=== PATIENT | female | born 1975 | race Caucasian/White ===

== ENCOUNTER 2016-12-07 10:55 | Emergency (ER) | payer OTHER ==
[2016-12-07 11:01] VITALS: BP 94/72; BMI 25.7
--- NOTE | 2016-12-07 11:51 | DR.GENAD ---
HPI - PCP Primary Care Physician: Adrian - HPI Comment HPI Comment: FELL OFF THE STEP WEDNESDAY AND INJURED LOWER BACK. PAIN SINCE THAT RADIATES TO LEFT HIP. NO LOC. HAVE INJURED BACK PREVIOUSLY. - Complaint/Symptoms Chief Complaint Doctors Comments: FELL, LOW BACK PAIN. Chief Complaint:: pt states she fell out the door steps on wednesday and has been having lower back pain since then that radiates to her right leg. Self Treatment fo Chief Complaint: Ibuprofen - Nurses notes reviewed Nurses Notes Review: Yes - Source History Provided: Patient - Mode of Arrival Mode of Arrival: Ambulatory - Timing Onset of Chief Complaint: 12/04/16 Came on: Suddenly - Duration Duration: Constant Duration: Days - Severity Severity: Moderate PMH - PMH Past Medical History: Yes Past Medical History Comment: Scoliosis Past Surgical History: Yes Surgical History: - Family History History of Family Medical Conditions: Yes Family Medical History: Diabetes Mellitus, Cancer, Hypertension - Social History Does patient currently use any type of tobacco product: Yes Have you used tobacco products in the last 12 months: Yes Type of Tobacco Use: Cigarettes Does any household member use tobacco: No Alcohol Use: None Do you use any recreational Drugs:: No Lives With: Alone Lives Where: Home - infectious screening In the last 2 months have you had wt loss of >10#?: NO Have you had fever, night sweats or hemotysis?: No Have you traveled outside the country in the last 6 months?: No Isolation: Standard ROS - Review of Systems Constitutional: No Symptoms Reported Eyes: No Symptoms Reported ENTM: No Symptoms Reported Respiratoy: No Symptoms Reported Cardiovascular: No Symptoms Reported Gastrointestinal/Abdominal: No Symptoms Reported Genitourinary: No Symptoms Reported Neurological: No Symptoms Reported Musculoskeletal: Back Pain (LOWER BACK PAIN) Integumentary: No Symptoms Reported Hematologic/Lymphatic: No Symptoms Reported Endocrine: No Symptoms Reported All Other Systems: Reviewed and Negative PE - Vital Signs Vitals: Temperature 98 F Pulse Rate 85 Respiratory Rate 18 Blood Pressure 94/72 O2 Sat by Pulse Oximetry 98 - General Limitations: No Limitations General Appearance: Alert - Head Head Exam: Normal Inspection - Eyes Eye exam: Normal Appearance - ENT ENT Exam: Normal External Ear Exam Nose Exam: Normal Nose Exam Mouth Exam: Normal Inspection Throat Exam: Normal Inspection - Neck Neck Exam: Trachea Midline - Chest Chest Inspection: Symmetric Chest Wall Rise - Respiratory Respiratory Exam: Normal Lung Sounds Bilat Respiratory Exam: Bilateral Clear to Auscultation - Cardiovascular Cardiovascular Exam: Regular Rate, Normal Rhythm, Normal Heart Sounds - Abdominal Exam Abdominal Exam: Normal Bowel Sounds, Soft. negative: Tenderness - Extremities Extremities Exam: Normal Inspection - Back Back Exam: Paraspinal Tenderness, Vertebral Tenderness (LOWER BACK) - Neurologic Neurological Exam: Alert, Oriented X3 - Psychiatric Psychiatric Exam: Normal Affect, Normal Mood - Skin Skin Exam: Normal Color MDM - Additional Information Additional Information Obtained From: Family - Differential Diagnosis Differential Diagnosis: LOWER BACK SRTRAIN, SPRAIN FRACTURE, CONTUSION. Course - Treatment Treatment: SEE ORDERS. - Education/Counseling Education/Counseling: Patient, Education Educated On: Treatment, Diagnosis, Needs for Follow Up ROR - XRAY XRAY Interpreted by: Radiologist XRAY Findings: REPORT DISCUSS WITH PATIENT. - Diagnosis Discharge Problem: Lumbosacral strain Qualifiers: Encounter type: initial encounter Qualified Code(s): S39.012A - Strain of muscle, fascia and tendon of lower back, initial encounter - Discharge Plan Disposition: HOME, SELF-CARE Condition: Stable Prescriptions: Cyclobenzaprine HCl [FLEXERIL 10 MG *] 10 mg PO TID PRN #20 tab PRN Reason: Ibuprofen [MOTRIN TAB 600 MG *] 600 mg PO TID PRN #20 tab PRN Reason: Pain/Inflammation Tramadol HCl 50 mg PO Q8H PRN #15 tab PRN Reason: Pain - Follow ups/Referrals Follow ups/Referrals: NFD,None [Primary Care Provider] - 3 days - Instructions Instructions: Lumbosacral Strain Additional Instructions: RETURN TO ED IF WORSE.
[2016-12-07] MEDS ORDERED: NORFLEX INJ IM ONE (13:29)
[2016-12-07] MEDS ORDERED: TORADOL 60 MG VIAL IM ONE (13:29)
[2016-12-07] MEDS ORDERED: TORADOL 60 MG VIAL ONE (14:00)
[2016-12-07] MEDS ORDERED: NORFLEX INJ ONE (14:01)
--- NOTE | 2016-12-07 15:25 | RAD ---
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 The alignment is normal . The vertebral bodies are of average height. No compression fractures are identified. Degenerative disc disease is present at L2-3 L5-S1. The pedicles are intact. The SI joints are poorly demonstrate d due to suboptimal positioning. No spondylolysis or spondylolisthesis is identified. 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 Suboptimal evaluation of the sacroiliac joints due to suboptimal positioning of the patient. Reported By:
== END 2016-12-07 15:19 | disposition home or self-care (01) ==
LOC: ER 10:55
DX: S39.012A Strain of muscle, fascia and tendon of lower back, initial encounter (principal); W10.9XXA Fall (on) (from) unspecified stairs and steps, initial encounter; Y92.9 Unspecified place or not applicable
CPT/HCPCS: 72110; 96372; 99282; 99283; J1885; J2360

== ENCOUNTER 2017-08-27 13:48 | Emergency (ER) | payer SELFPAY ==
[2017-08-27 13:52] VITALS: BP 105/66; BMI 23.6
--- NOTE | 2017-08-27 15:03 | DR.GENAD ---
HPI - PCP Primary Care Physician: ULISSES - HPI Comment HPI Comment: PATIENT SAID SHE IS GETTING WORSE. SHE WEAK AND TIRED EASILY. - Complaint/Symptoms Chief Complaint Doctors Comments: SICK TIMES 2 MONTHS WITH PERSISTENT COUGHING. MEDS TAKING SO FAR NOT HELPING. TOOK MED FROM [facility]. HAVING GENERALIZE BODY ACHES ALSO. Chief Complaint:: PATIENT STATED THAT SHE HAS BEEN COUGHING AND FEVER BODY ACHES FOR THE LAST 2 MONTHS. - Nurses notes reviewed Nurses Notes Review: Yes - Source History Provided: Patient - Mode of Arrival Mode of Arrival: Ambulatory - Timing Onset of Chief Complaint: 06/28/17 Came on: Gradually - Duration Duration: Constant Duration: Weeks - Severity Severity: Moderate PMH - PMH Past Medical History: No Past Surgical History: Yes Surgical History: - Family History History of Family Medical Conditions: Yes Family Medical History: Diabetes Mellitus, Cancer, Hypertension - Social History Does patient currently use any type of tobacco product: Yes Have you used tobacco products in the last 12 months: Yes Type of Tobacco Use: Cigarettes Does any household member use tobacco: No Alcohol Use: None Do you use any recreational Drugs:: No Lives With: Family Lives Where: Home - infectious screening In the last 2 months have you had wt loss of >10#?: NO Have you had fever, night sweats or hemotysis?: No Have you traveled outside the country in the last 6 months?: No Isolation: Standard ROS - Review of Systems Constitutional: Weakness, Fatigue. negative: Chills, Fever Eyes: negative: Eye Pain, Discharge ENTM: Nose Congestion. negative: Ear Pain, Nose Discharge, Throat Pain Respiratoy: Non-Productive Cough. negative: Short of Breath, Wheezing, Hemoptysis Cardiovascular: Chest Pain (CHEST WALL PAIN.) Gastrointestinal/Abdominal: No Symptoms Reported Genitourinary: No Symptoms Reported Neurological: No Symptoms Reported Musculoskeletal: Muscle Pain Integumentary: No Symptoms Reported Hematologic/Lymphatic: No Symptoms Reported Endocrine: No Symptoms Reported All Other Systems: Reviewed and Negative PE - Vital Signs Vitals: Temperature 97.6 F Pulse Rate 81 Respiratory Rate 20 Blood Pressure 105/66 O2 Sat by Pulse Oximetry 100 - General Limitations: No Limitations General Appearance: Alert - Head Head Exam: Normal Inspection - Eyes Eye exam: Normal Appearance - ENT ENT Exam: Normal External Ear Exam External Ear Exam: Normal External Inspection TM/Canal Exam: Bilateral Normal Nose Exam: Normal Nose Exam Mouth Exam: Normal Inspection Throat Exam: Normal Inspection - Neck Neck Exam: Trachea Midline - Chest Chest Inspection: Symmetric Chest Wall Rise - Respiratory Respiratory Exam: Normal Lung Sounds Bilat Respiratory Exam: Bilateral Rhonchi, Lower Rhonchi - Cardiovascular Cardiovascular Exam: Regular Rate, Normal Rhythm, Normal Heart Sounds - Abdominal Exam Abdominal Exam: Normal Bowel Sounds, Soft. negative: Tenderness - Extremities Extremities Exam: Normal Inspection - Back Back Exam: Normal Inspection - Neurologic Neurological Exam: Alert, Oriented X3 - Psychiatric Psychiatric Exam: Normal Affect, Normal Mood - Skin Skin Exam: Normal Color MDM - Differential Diagnosis Differential Diagnosis: PNEUMONIA, BRONCHITIS, UTI, Course - Treatment Treatment: SEE ORDERS. - Education/Counseling Education/Counseling: Patient, Education Educated On: Diagnosis, Needs for Follow Up ROR - Labs Reviewed Laboratory Results Reviewed?: Yes Result Diagrams: 08/27/17 15:21 08/27/17 15:21 Laboratory: WBC 8.2 X10^3/uL (3.6-10.0) 08/27/17 15:21 RBC 4.41 X10^6/uL (3.5-5.4) 08/27/17 15:21 Hgb 14.3 g/dL (12.0-16.0) 08/27/17 15:21 Hct 40.7 % (36.0-47.0) 08/27/17 15:21 MCV 92.4 fL (80.0-100.0) 08/27/17 15:21 MCH 32.4 pg (27.0-34.0) 08/27/17 15:21 MCHC 35.1 g/dL (33.0-35.0) H 08/27/17 15:21 RDW 12.8 % (11.6-16.5) 08/27/17 15:21 Plt Count 224 X10^3/uL (150.0-450.0) 08/27/17 15:21 MPV 8.3 fL (7.4-11.0) 08/27/17 15:21 Neut % 52.2 % (42.0-75.0) 08/27/17 15:21 Lymph % 36.1 % (21.0-51.0) 08/27/17 15:21 [place] % 9.2 % (0.0-13.0) 08/27/17 15:21 Eos % 2.1 % (0.9-2.9) 08/27/17 15:21 Baso % 0.4 % (0.2-1.0) 08/27/17 15:21 Neut # 4.3 x10^3/uL (2.2-4.8) 08/27/17 15:21 Lymph # 2.9 X10^3/uL (1.3-2.9) 08/27/17 15:21 [place] # 0.7 x10^3/uL (0.3-0.8) 08/27/17 15:21 Eos # 0.2 x10^3/uL (0.0-0.2) 08/27/17 15:21 Baso # 0.0 X10^3/uL (0.0-0.1) 08/27/17 15:21 Absolute Nucleated RBC 0.1 /100WBC 08/27/17 15:21 D-Dimer 149 ng/mL (0-400) 08/27/17 15:21 Sodium 142 mmol/L (136-145) 08/27/17 15:21 Corrected Sodium TNP 08/27/17 15:21 Potassium 3.8 mmol/L (3.5-5.1) 08/27/17 15:21 Chloride 106 mmol/L (98-107) 08/27/17 15:21 Carbon Dioxide 30.2 mmol/L (21-32) 08/27/17 15:21 BUN 9 mg/dL (7-18) 08/27/17 15:21 Creatinine 0.73 mg/dL (0.55-1.02) 08/27/17 15:21 Est GFR (MDRD) Af Amer > 60 (>60) 08/27/17 15:21 Est GFR (MDRD) Non-Af > 60 (>60) 08/27/17 15:21 Glucose 83 mg/dL (65-99) 08/27/17 15:21 Calcium 8.8 mg/dL (8.5-10.1) 08/27/17 15:21 Corrected Calcium TNP 08/27/17 15:21 Total Bilirubin 0.20 mg/dL (0.2-1.0) 08/27/17 15:21 AST 15 Units/L (15-37) 08/27/17 15:21 ALT 17 Units/L (12-78) 08/27/17 15:21 Alkaline Phosphatase 96 Units/L (46-116) 08/27/17 15:21 Total Protein 7.1 g/dL (6.4-8.2) 08/27/17 15:21 Albumin 3.7 g/dL (3.4-5.0) 08/27/17 15:21 Globulin 3.4 g/dL (2.5-4.5) 08/27/17 15:21 Albumin/Globulin Ratio 1.1 Ratio (1.1-2.1) 08/27/17 15:21 Specimen Type Clean catch urine 08/27/17 15:17 Urine Color Yellow (YELLOW) 08/27/17 15:17 Urine Appearance Cloudy (CLEAR) 08/27/17 15:17 Urine pH 7.0 (5.0 - 8.0) 08/27/17 15:17 Ur Specific [place] 1.015 (1.000-1.030) 08/27/17 15:17 Urine Protein 1+ (NEGATIVE) 08/27/17 15:17 Urine Glucose (UA) Negative (NEGATIVE) 08/27/17 15:17 Urine Ketones 1+ (NEGATIVE) 08/27/17 15:17 Urine Occult Blood 1+ (NEGATIVE) 08/27/17 15:17 Urine Nitrite Positive (NEGATIVE) 08/27/17 15:17 Urine Bilirubin Negative (NEGATIVE) 08/27/17 15:17 Urine Urobilinogen 2+ (NORMAL) 08/27/17 15:17 Ur Leukocyte Esterase 3+ (NEGATIVE) 08/27/17 15:17 Urine RBC 02 - 05 /HPF (NEGATIVE) 08/27/17 15:17 Urine WBC Tntc with clumps /HPF (NEGATIVE) 08/27/17 15:17 Ur Squamous Epith Cells Many /HPF (NEGATIVE) 08/27/17 15:17 Ur Renal Epithelial Cell Few /HPF (NEGATIVE) 08/27/17 15:17 Amorphous Sediment 2+ /HPF (NEGATIVE) 08/27/17 15:17 Urine Bacteria 3+ /HPF (NEGATIVE) 08/27/17 15:17 Hyaline Casts Rare /LPF (NEGATIVE) 08/27/17 15:17 Ur Culture Indicated? Yes/culture set up 08/27/17 15:17 - XRAY XRAY Interpreted by: Radiologist XRAY Findings: REPORT DISCUSS WITH PATIENT. - Diagnosis Discharge Problem: Bronchitis Chest pain Qualifiers: Chest pain type: intercostal pain Qualified Code(s): R07.82 - Intercostal pain UTI (urinary tract infection) Qualifiers: Urinary tract infection type: site unspecified Hematuria presence: without hematuria Qualified Code(s): N39.0 - Urinary tract infection, site not specified - Discharge Plan Disposition: HOME, SELF-CARE Condition: Stable Prescriptions: Benzonatate [TESSALON PERLES *] 200 mg PO TID PRN #30 cap PRN Reason: Cough Ciprofloxacin HCl [CIPRO 500 MG TAB *] 500 mg PO Q12H #20 tab Ibuprofen [MOTRIN TAB 600 MG *] 600 mg PO TID PRN #30 tab PRN Reason: Pain/Inflammation - Follow ups/Referrals Follow ups/Referrals: NFD,None [Primary Care Provider] - 3 days - Instructions Instructions: Cough, Adult, [id number], Urinary Tract Infection, Adult, Easy- to-Read, Acute Bronchitis, [id number] Additional Instructions: RETURN TO ED IF WORSE.
--- NOTE | 2017-08-27 15:26 | RAD ---
HISTORY: 41-year-old female with cough and flu-like symptoms. Study: Frontal view of the chest. Comparison: Chest radiographs 08/29/2012 Findings: The trachea is midline. The cardiac silhouette is unremarkable. The lungs are clear without focal c onsolidation, effusion or pneumothorax. Soft tissues are unremarkable. Osseous structures are unrema rkable. IMPRESSION: 1. No acute cardiopulmonary disease. Reported By:
[2017-08-27 15:31] LABS: BILIRUBIN,URINE NEGATIVE (NEGATIVE); BLOOD/HEMOGLOBIN,URINE 1+ (NEGATIVE); GLUCOSE, URINE NEGATIVE (NEGATIVE); KETONES,URINE 1+ (NEGATIVE); LEUKOCYTE ESTERASE ,URINE 3+ (NEGATIVE); NITRITES,URINE POSITIVE (NEGATIVE); PROTEIN,URINE 1+ (NEGATIVE); UROBILINOGEN,URINE 2+ (NORMAL)
[2017-08-27 15:36] LABS: BASOPHILS % (AUTO) 0.4 % (0.2-1.0); EOSINOPHILS # (AUTO) 0.2 x10^3/uL (0.0-0.2); EOSINOPHILS % (AUTO) 2.1 % (0.9-2.9); HEMATOCRIT 40.7 % (36.0-47.0); HEMOGLOBIN 14.3 g/dL (12.0-16.0); LYMPHOCYTES # (AUTO) 2.9 X10^3/uL (1.3-2.9); LYMPHOCYTES % (AUTO) 36.1 % (21.0-51.0); MEAN CORPUSCULAR HEMOGLOBIN 32.4 pg (27.0-34.0); MEAN CORPUSCULAR HGB CONC 35.1 g/dL (33.0-35.0); MEAN CORPUSCULAR VOLUME 92.4 fL (80.0-100.0); MEAN PLATELET VOLUME 8.3 fL (7.4-11.0); MONOCYTES # (AUTO) 0.7 x10^3/uL (0.3-0.8); MONOCYTES % (AUTO) 9.2 % (0.0-13.0); NEUTROPHILS # (AUTO) 4.3 x10^3/uL (2.2-4.8); NEUTROPHILS % (AUTO) 52.2 % (42.0-75.0); PLATELET COUNT 224 X10^3/uL (150.0-450.0); RED BLOOD COUNT 4.41 X10^6/uL (3.5-5.4); RED CELL DISTRIBUTION WIDTH 12.8 % (11.6-16.5); WHITE BLOOD COUNT 8.2 X10^3/uL (3.6-10.0)
[2017-08-27 15:44] LABS: APPEARANCE,URINE CLOUDY (CLEAR); COLOR,URINE YELLOW (YELLOW)
[2017-08-27 15:45] LABS: AMORPHOUS SEDIMENT,UR 2+ /HPF (NEGATIVE); BACTERIA,URINE 3+ /HPF (NEGATIVE); HYALINE CASTS, URINE RARE /LPF (NEGATIVE); RENAL EPITHELIAL CELLS,URINE FEW /HPF (NEGATIVE); SQUAMOUS EPITHELIAL CELL,UR MANY /HPF (NEGATIVE)
[2017-08-27 15:49] LABS: ALANINE AMINOTRANSFERASE 17 Units/L (12-78); ALBUMIN 3.7 g/dL (3.4-5.0); ALKALINE PHOSPHATASE 96 Units/L (46-116); ASPARTATE AMINO TRANSFERASE 15 Units/L (15-37); BLOOD UREA NITROGEN 9 mg/dL (7-18); CALCIUM 8.8 mg/dL (8.5-10.1); CARBON DIOXIDE 30.2 mmol/L (21-32); CHLORIDE 106 mmol/L (98-107); CREATININE 0.73 mg/dL (0.55-1.02); SODIUM 142 mmol/L (136-145); TOTAL PROTEIN 7.1 g/dL (6.4-8.2); eGFR BLACK RACES > 60 (>60); eGFR NON BLACK RACES > 60 (>60)
[2017-08-27] MEDS ORDERED: ROCEPHIN VIAL 1 GM IM ONE (16:23)
[2017-08-27] MEDS ORDERED: TORADOL 60 MG VIAL IM ONE (16:23)
[2017-08-27] MEDS ORDERED: XYLOCAINE 1 % (PLAIN) ONE (16:29)
[2017-08-27] MEDS ORDERED: TORADOL 60 MG VIAL ONE (16:29)
[2017-08-27] MEDS ORDERED: ROCEPHIN VIAL 1 GM ONE (16:29)
== END 2017-08-27 17:11 | disposition home or self-care (01) ==
LOC: ER 13:55
DX: J40 Bronchitis, not specified as acute or chronic (principal); R07.82 Intercostal pain; N39.0 Urinary tract infection, site not specified; B96.29 Other Escherichia coli [E. coli] as the cause of diseases classified elsewhere
CPT/HCPCS: 36415; 71045; 80053; 81001; 85025; 85378; 87086; 87088; 87186; 96372; 99282; 99283; J0696; J1885; J2001